=== PATIENT | male | born 1980 | race Two or more races ===

== ENCOUNTER 2025-06-15 21:04 | Emergency (ER) | payer BC, SELFPAY ==
[2025-06-15 21:18] VITALS: BP 134/81
[2025-06-15 21:59] VITALS: BMI 26.3
--- NOTE | 2025-06-15 22:59 | ED.GENMED ---
History of Present Illness
General
Chief Complaint: Nasal Problem
Source: patient
Exam Limitations: none
Time Seen by Provider: 06/15/25 22:56
Nursing documentation reviewed up to this point in time: agreed with
History of Present Illness
History of Present Illness:
Note:
CHIEF COMPLAINT(S)
Facial trauma with nasal pain following a softball accident.
HISTORY OF PRESENT ILLNESS
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 He was standing approximately four to five feet away from a player who accidentally threw a
softball directly into his face. The incident occurred shortly before the presentation. The patient reports pain localized to the nose, rating it as a seven out of ten upon arrival. He denies any change in vision or bleeding from the mouth. There
was no loss of consciousness. He denies dizziness or lightheadedness. He denies any neck pain. The patient denies any dental trauma. The patient notes a pre-existing slight curvature of the nose from prior nasal fracture around 15 years ago. He also
notes some pain around his upper gums. He denies any other injuries.
PAST MEDICAL AND SURGICAL HISTORY
The patient does not currently follow with an ENT
[employer]S AFFECTING HEALTH
The patient is scheduled to fly the next day and is planning to be away for a week, indicating travel considerations in his treatment plan.
ALLERGIES
The patient reports allergies to shellfish and a history of adverse reactions to medications in the fluoroquinolone class, specifically ciprofloxacin.
REVIEW OF SYSTEMS
- Facial pain localized to the nasal area
- Nasal swelling, bilaterally
- No changes in vision
- No evidence of oral bleeding
PHYSICAL EXAM
General: Alert, no acute distress.
Skin: Warm, dry. Small abrasion noted over the bridge of the nose
Head: Nasal swelling and ecchymosis noted, no tenderness to palpation of the facial bones, TM joints intact bilaterally
Neck: Supple, trachea midline.
Eyes, Ears, Nose, Mouth, and Throat: See above. Oral mucosa moist. No intra-oral lesions, no bleeding, no signs of dental trauma. Anterior epistaxis noted R > L, no septal hematoma
Cardiovascular: Normal peripheral perfusion, No edema.
Respiratory: Respirations are non-labored.
Gastrointestinal: Abdomen nondistended.
Back: Normal range of motion, Normal alignment.
Musculoskeletal: Normal range of motion, normal strength.
Neurological: Alert and oriented to person, place, time, and situation, No focal neurological deficit observed.
Psychiatric: Cooperative, appropriate mood, and affect.
PROBLEM LIST
Acute Problems:
- Nasal fracture with swelling
- Minor laceration over the nasal area
PLAN
- Initiate antibiotics.
- Observational period of 10-15 minutes to monitor for any significant re-bleeding from the nose, epi via atomizer
- Prepare nasal epinephrine-soaked cotton swabs for placement in the right nostril to constrict vessels and control bleeding.
- Provide a referral to ENT for further evaluation and management
- Confirm absence of further bleeding before discharge
DIFFERENTIAL DIAGNOSIS
The Differential Diagnosis includes, in no particular order and is not limited to:
- Nasal fracture
- Soft tissue contusion of the face
- Orbital fracture
- Septal hematoma
- Concussion
- Dental trauma
- Facial bone fracture
- Hematoma formation
- Nasal septal deviation
- Maxillary fracture
CHART REVIEW
Reviewed in [facility], no previous ER physician documentation. Reviewed external medical exam. No visits in external medical summary to review
MDM/DISPOSITION
45-year-old male presents emergency department today after he was hit in the face with a softball. No loss consciousness. He denies any lightheadedness or dizziness. He had nosebleeding immediately pain on the nasal bridge. He was found to have
a comminuted nasal bone fracture. On exam, he has a lot of swelling in anterior nasal bleeding bilaterally with no evidence of septal hematoma. There is swelling and ecchymosis present on exam but no obvious deformity. Considering abrasion noted
over nasal bones and questionable maxillary spine fracture, will initiate antibiotics prophylaxis. Bleeding controlled with epinephrine. Stressed importance of following up with ENT for further management and care. Patient stable for discharge.
Review of Systems
Review of Systems
All Other Systems: ROS reviewed and negative except as documented in HPI and ROS
Phy Exam
Physical Exam
Physical Exam:
see hpi
Course
Orders/Labs/Results
Orders:
Orders
06/15/25 21:22
Nasal Bones, complete 3 Views [CR Nasal Bones Comp Min 3 View] Urgent
Comment:
Reason For Exam: injury
06/15/25 23:27
Tetanus/Diphth/Acelpertussis [Adacel] 0.5 ml IM .ONCE ONE
Vital Signs
Initial and Last Documented VS:
Initial Vital Signs
Temp Pulse Resp BP Pulse Ox
98.7 F 69 20 134/81 98
06/15/25 21:18 06/15/25 21:18 06/15/25 21:18 06/15/25 21:18 06/15/25 21:18
Last Documented Vital Signs
Temp Pulse Resp BP Pulse Ox
98.7 F 78 18 146/98 99
06/15/25 21:18 06/16/25 00:35 06/16/25 00:35 06/16/25 00:35 06/16/25 00:35
*Pulse Oximetry
SaO2: 98
Oxygen Mode of Delivery: Room air
Patient hypoxic: no
*Critical Care Note
Total Time (30-74mins, 75-104mins- exclusive of procedures): Not Applicable
ED Attending Note
-
Portions of this chart may have been created with voice recognition software.� Occasional wrong word or��sound alike� substitutions may have occurred due to the inherent limitations of voice recognition software.
Discharge Plan
Departure
Patient Disposition: Home (Routine Discharge)
Date of Disposition: 06/16/25
Time of Disposition: 00:05
Patient with high blood pressure during this ER visit?: Yes
Condition: Good
Discharge Problem:
Fracture of nasal bone
Instructions: Nose Fracture (DC), Nosebleeds (DC), BLOOD PRESSURE
Prescriptions:
New
amoxicillin-pot clavulanate 875-125 mg tablet
1 tab PO BID 5 Days Qty: 10 0RF
Referrals:
Gee Boudreaux MD [Active, ENT] - Call in 1-3 days for appt
Activity Restrictions/Additional Instructions:
Please continue to use ice over the area as needed. Tomorrow, you can start taking Augmentin. You can take one tablet twice daily for 5 days. Your tetanus was updated. Please call the attached number to schedule an appointment with Dr. Boudreaux's
office. Please say that you were seen in the ER for a nasal fracture.
Please continue to monitor your symptoms. PLEASE RETURN TO THE ER SHOULD YOU DEVELOP DIZZINESS, LIGHTHEADEDNESS, VISUAL CHANGES, VISUAL LOSS, PERSISTENT BLEEDING, VOMITING BLOOD, SIGNS OR SYMPTOMS WORRISOME TO YOU.
Interventions
Interventions:
*Risk Screen - Suicide Last Done: 06/15/25 21:18
*General Assessment Last Done: 06/15/25 21:18
*Neglect/Abuse Screening Last Done: 06/15/25 21:18
*ED- Fall Risk Assessment Last Done: 06/15/25 21:18
*ED COVID-19 Vaccine History Last Done: 06/15/25 21:18
*Nursing Disposition Last Done: 06/16/25 00:37
ED-EENT Assessment Last Done: 06/15/25 22:00
Discharge Date and Time
Discharge Date/Time: 06/16/25 00:38
Print Language: SINHALA
[2025-06-16] MEDS: ADACEL 0.5 ML IM (00:01)
[2025-06-16 00:35] VITALS: BP 146/98
== END 2025-06-16 00:38 | disposition home or self-care (01) ==
LOC: EMR 21:04
PROVIDERS: EMERGENCY PHYSICIAN Student in an Organized Health Care Education/Training Program; FAMILY PHYSICIAN Family Medicine
DX: S02.2XXA Fracture of nasal bones, initial encounter for closed fracture (principal); X58.XXXA Exposure to other specified factors, initial encounter; Y93.64 Activity, baseball; E78.5 Hyperlipidemia, unspecified; Z91.013 Allergy to seafood; Z88.1 Allergy status to other antibiotic agents; Z23 Encounter for immunization
CPT/HCPCS: 90471; 99283; 70160; 90715